=== PATIENT | female | born 2000 | race Caucasian/White ===

== ENCOUNTER 2022-08-05 04:13 | Emergency (ER) | payer OTHER ==
[~2022-08-05] VITALS: Ht 152.4 cm; Wt 81.8 kg
[2022-08-05 12:40] VITALS: BP 111/58; TEMP 97.9; O2SAT 93
== END 2022-08-05 12:45 | disposition home or self-care (01) ==
LOC: M ED 04:13
DX: F32.A Depression, unspecified (principal); F43.0 Acute stress reaction